=== PATIENT | female | born 1970 | race Two or more races ===

== ENCOUNTER 2017-12-30 22:19 | Emergency (ER) | payer OTHER ==
[~2017-12-30] VITALS: Ht 165.1 cm; Wt 82.6 kg
[2017-12-30] MEDS ORDERED: ASPIR 8181 MG (22:33)
[2017-12-30] MEDS ORDERED: LISINOPRIL10 MG (22:33)
== END 2017-12-31 04:39 | disposition home or self-care (01) ==
LOC: ER 22:19 → CPU-OBS 22:41 → ER 22:41
DX: R07.89 Other chest pain (principal); M94.0 Chondrocostal junction syndrome [Tietze]
CPT/HCPCS: G0378; G0379; 93005